=== PATIENT | female | born 1990 | race Caucasian/White ===

== ENCOUNTER 2017-03-06 06:07 | Inpatient (IN) ==
[2017-03-06 06:34] LABS: Basophils % 0.5 % (0.0-0.8); Eosinophils # 0.4 10*3/uL (0.0-0.87); Eosinophils % 5.6 % (0.00-10.9); Hematocrit 36.9 VOL% (35.7-47.0); Hemoglobin 12.7 GM/DL (12.0-16.0); Immature Granulocytes % 0.2 %; Immature Granulocytes Absolute 0.01 #; Lymphocytes # 2.7 10*3/uL (1.4-4.0); Mean Corpuscular HGB Conc 34.4 GM/DL (32-36); Mean Corpuscular Hemoglobin 32 PG (27-34); Mean Platelet Volume 10.4 FL (9.6-12.0); Monocytes # 0.3 10*3/uL (0.11-0.8); Monocytes % 5.4 % (1.7-12.7); Neutrophils # 2.8 10*3/uL (1.4-7.4); Neutrophils % 45.3 % (38.7-73.9); Platelet Count 178 T/CUMM (130-400); Red Blood Count 4.01 MC/CUMM (3.8-5.5); Red Cell Distribution Width 13.4 % (9.3-17.3); White Blood Count 6.3 T/CUMM (4-12)
[2017-03-06] MEDS ORDERED: FAMOTIDINE 20 MG TABLET PO ONE (06:48)
[2017-03-06] MEDS ORDERED: DIAZEPAM 5 MG TABLET PO ONE (06:48)
[2017-03-06] MEDS ORDERED: SCOPOLAMINE 1.5 MG PATCH TRANSDERM ONE ×2 (06:48→07:30)
[2017-03-06 06:57] LABS: Calcium 9.1 MG/DL (8.5-10.1); Osmolality,Calculated 280.3 MOS/KG (273-304); Potassium 3.9 MMOL/L (3.5-5.1)
[2017-03-06] MEDS ORDERED: LACTATED RINGERS 1,000 ML IV SCH (07:00)
--- NOTE | 2017-03-06 07:07 | History and Physical Update ---
History and Physical Update - History and Physical H&P was reviewed, the patient examined and there: are no changes in the patients condition since last H&P was completed.
[2017-03-06] MEDS ORDERED: ceFAZolin 1,000 MG VIAL ONE (07:30)
[2017-03-06] MEDS ORDERED: FAMOTIDINE 20 MG TABLET ONE (07:30)
[2017-03-06] MEDS ORDERED: DIAZEPAM 5 MG TABLET ONE (07:30)
[2017-03-06] MEDS ORDERED: SODIUM CHLORIDE 0.9% 0 ML IV ONE (07:31)
[2017-03-06] MEDS ORDERED: TISSUE ADHESIVE 1 EACH APPLICATOR TOP ONE (09:27)
[2017-03-06] MEDS ORDERED: CLINDAMYCIN INJ 900 MG in PREMIX 1 EACH IV ONE (09:54)
[2017-03-06] MEDS ORDERED: CLINDAMYCIN INJ 50 ML IV ONE (09:56)
[2017-03-06] MEDS ORDERED: HYDROmorphone 2 MG/1 ML VIAL ONE ×2 (11:50→13:40)
[2017-03-06] MEDS ORDERED: ONDANSETRON 4 MG/2 ML VIAL ONE (11:51)
--- NOTE | 2017-03-06 11:51 | Anesthesia Post-Op ---
Anesthesia Post OP - Post Ansesthetic Evaluation Patient seen in post op: Yes Resp: within normal limits CV: within normal limits Mental: within normal limits Temp: within normal limits [id number]: within normal limits Nausea and Vomiting: within normal limits Pain: within normal limits
[2017-03-06] MEDS ORDERED: PROPOFOL 200 MG/20 ML VIAL IV ONE (11:54)
[2017-03-06] MEDS: HYDROmorphone 2 MG/1 ML VIAL IV PRN ×4 (11:55→22:31)
[2017-03-06] MEDS ORDERED: SEVOFLURANE 1 UNIT/15 MINUTE INH ONE (11:55)
[2017-03-06] MEDS ORDERED: ACETAMINOPHEN 1,000 MG/100 ML VIAL IV ONE (11:55)
[2017-03-06] MEDS ORDERED: MIDAZOLAM 2 MG/2 ML VIAL ONE (11:55)
[2017-03-06] MEDS ORDERED: fentaNYL 100 MCG/2 ML VIAL ONE (11:55)
[2017-03-06] MEDS ORDERED: ONDANSETRON 4 MG/2 ML VIAL IV PRN (11:55)
--- NOTE | 2017-03-06 12:14 | Operative Note ---
Date of procedure: 03/06/17 Pre-op diagnosis: Gastroparesis, refractory to medical management Post-op diagnosis: same Procedure: Procedure performed: #1 robotically assisted laparoscopic placement of gastric stimulator leads #2 placement of gastric stimulator generator #3 EGD #4 programming of gastric stimulator Procedure in detail: After informed consent was obtained patient was taken operating suite and laid supine on the operating table. After general anesthesia was induced the abdomen was prepped and draped in usual sterile fashion including [place]. After procedural pause local anesthetic infiltrated in the skin and subcutaneous tissue just to the right of the umbilicus. Incision made and dissection carried down through skin and soft tissue. Anterior fascia divided and the rectus muscle retracted. Posterior fascia and peritoneum were opened and finger sweep revealed no adhesions. Stimulator leads were inserted along with the Dean trocar under direct visualization. Pneumoperitoneum achieved. Camera was inserted and bowel mesentery were inspected and found to be free of any violation. Next the patient was placed in reverse Trendelenburg position and 2 more 8 mm trochars were placed in the left upper quadrant along with a 5 mm h training program assistant trocar. The robotic arms were then docked and I took control to consult. There was prior cholecystectomy. There was no scar tissue or adhesions involving any portion of the stomach including near the gastroesophageal junction or hiatus that I could tell. Identified a point that was exactly 10 cm from the pylorus along the greater curvature. The skin needles were then placed approximately a half a centimeter from this point on each side. The blue Prolene suture was within the gastric wall and an EGD was performed. Esophagus appeared normal. There was some retained secretions in the stomach which were evacuated and the cyst the stomach was insufflated. Using the laparoscope camera I identified the area of the blue Prolene sutures and could not see them on EGD. There was no mucosal abnormalities. The abdomen was desufflated and the stimulator leads were then brought into the gastric wall. Impedance was checked and was okay. The discs were inserted in the skin needles placed through the disc and the Prolene sutures were clipped with the discs snug against the gastric wall. The skin needles were then removed. The trumpets were sewn in place using 2-0 Ethibond. The discs were sewn in place using 2-0 Ethibond. There was excellent hemostasis. The robotic arms were undocked and the trochars removed as the abdomen desufflated. The peritoneum and posterior fascia was closed with 0 Vicryl [id number] suture. The anterior fascia closed with running 0 Prolene suture. Subcutaneous pocket was created. There was good hemostasis. The wounds were all thoroughly irrigated and suctioned. Stimulator was placed in the subcutaneous pocket with the excess lead wrapped behind it. It was secured to the fascia using 2-0 Prolene suture. Stimulator was then interrogated and placed to the on position with nominal settings of a current of 5. Pulse width 330. Rate of 14 Hz. Cycling on 0.1 in all 5 seconds. Impedance was checked and was 505. Soft tissue over the pocket was closed with 3-0 Vicryl. Deep dermal layer was closed with interrupted 3-0 Vicryl suture. Incisions closed with 4-0 Monocryl. Sterile dressings applied. The patient was extubated and taken recovery room in stable condition. All lap and needle counts were correct at the end of the case. Anesthesia: GETA Surgeon / Physician: Corbin Recio Estimated blood loss: other (Less than 10 cc) Specimens: none sent Condition: stable Disposition: PACU Results - Labs CBC & BMP: 03/06/17 06:28 03/06/17 06:28 Discharge Plan - Discharge Medications No Action Pantoprazole Tab [Protonix Tab] 40 mg PO BID Escitalopram [Lexapro] 20 mg PO DAILY Ondansetron Tab [Zofran Tab] 8 mg PO Q8HR PRN PRN Reason: Nausea Promethazine Tab [Phenergan Tab] 25 mg PO DIRECTED PRN PRN Reason: Nausea Metoclopramide Tab [Reglan Tab] 10 mg PO TID Promethazine Inj [Phenergan Inj] 25 mg IV Q6H PRN PRN Reason: Nausea clonazePAM TAB [KlonoPIN] 1 mg PO Q12HR PRN PRN Reason: Anxiety Potassium Chloride 20 meq PO BID Ascorbic Acid Tab [Vitamin C Tab] 500 mg PO DAILY Fluticasone 50 Mcg Nasal [place] [Flonase Nasal [place]] 1 spray BOTH NARES DAILY PRN PRN Reason: Sinus Symptoms Fluticasone/Salmeterol [Advair Hfa 230-21 Mcg Inhaler] 230 mcg PO DIRECTED - Follow Up or Referral - Forms/Instructions
[2017-03-06] MEDS: fentaNYL 100 MCG/2 ML VIAL IV PRN ×2 (12:25→12:35)
[2017-03-06] MEDS ORDERED: SODIUM CHLORIDE 0.9% 1,000 ML IV SCH (12:30)
--- NOTE | 2017-03-06 13:04 | XRay Report ---
XR KUB Indication: Gastric pacemaker placement. Abdomen one view: There is a gastric stimulator device within the right lower quadrant with leads extending to the region of the mid stomach. Surgical clips in the area noted. Right upper quadrant surgical clips are present as well. Bowel gas pattern is unremarkable. Impression: Gastric stimulator as described. PROCEDURE INTERPRETED AT [facility] Final Report Signed by: Marc Gutierrez M.D.
[2017-03-06] MEDS ORDERED: FLUTICASONE 50 MCG NASAL SPRAY 16 GM BOTTLE BOTH NARES PRN (13:21)
[2017-03-06] MEDS ORDERED: ACETAMINOPHEN 325 MG TABLET PO PRN (13:21)
[2017-03-06] MEDS ORDERED: ALBUTEROL/IPRATROPIUM 3 ML NEB RESP TX PRN (13:21)
[2017-03-06] MEDS ORDERED: MORPHINE 2 MG/1 ML SYRINGE IV PRN (13:21)
[2017-03-06] MEDS ORDERED: FLUTICASONE PO SCH (13:21)
[2017-03-06] MEDS ORDERED: [UNRECOGNIZED DRUG - OTHER] PO SCH (13:21)
[2017-03-06] MEDS ORDERED: SALMETEROL PO SCH (13:21)
[2017-03-06] MEDS: DEXTROSE 5% NACL 0.45% 1,000 ML IV SCH ×2 (15:04→22:44)
[2017-03-06] MEDS: PANTOPRAZOLE 40 MG TABLET PO SCH (20:23)
[2017-03-07] MEDS: HYDROmorphone 2 MG/1 ML VIAL IV PRN ×2 (02:23→07:23)
[2017-03-07 05:54] LABS: Basophils % 0.3 % (0.0-0.8); Eosinophils # 0.2 10*3/uL (0.0-0.87); Eosinophils % 3.6 % (0.00-10.9); Hematocrit 34.9 VOL% (35.7-47.0); Hemoglobin 11.5 GM/DL (12.0-16.0); Immature Granulocytes % 0.2 %; Immature Granulocytes Absolute 0.01 #; Lymphocytes # 2.4 10*3/uL (1.4-4.0); Lymphocytes % 41.7 % (21.3-54.2); Mean Corpuscular Hemoglobin 31 PG (27-34); Mean Corpuscular Volume 94.1 FL (87-102); Mean Platelet Volume 10.4 FL (9.6-12.0); Monocytes # 0.4 10*3/uL (0.11-0.8); Neutrophils # 2.8 10*3/uL (1.4-7.4); Neutrophils % 48.2 % (38.7-73.9); Platelet Count 167 T/CUMM (130-400); Red Blood Count 3.71 MC/CUMM (3.8-5.5); Red Cell Distribution Width 13.5 % (9.3-17.3); White Blood Count 5.8 T/CUMM (4-12)
[2017-03-07 06:22] LABS: Calcium 8.4 MG/DL (8.5-10.1); Osmolality,Calculated 279.1 MOS/KG (273-304); Potassium 4.1 MMOL/L (3.5-5.1)
[2017-03-07] MEDS: DEXTROSE 5% NACL 0.45% 1,000 ML IV SCH (06:34)
[2017-03-07] MEDS: ONDANSETRON 4 MG/2 ML VIAL IV PRN ×2 (07:23→20:27)
[2017-03-07] MEDS: ESCITALOPRAM 10 MG TABLET PO SCH (09:07)
[2017-03-07] MEDS: PANTOPRAZOLE 40 MG TABLET PO SCH ×2 (09:07→20:28)
--- NOTE | 2017-03-07 10:31 | Event Note ---
Patient is postop day #1 status post robotically assisted placement of gastric stimulator. She is tolerating clears with nausea. She is complaining of uncontrolled pain. She was changed from morphine to Dilaudid overnight. She is requesting doubling her oral pain medicines this morning. She also complains of persistent right eye pain and injection for which she has been unable to seek treatment and is requesting ophthalmologic consultation. No bowel movement. She is voiding without difficulty. Patient reports mobilization. Vital signs stable General: No acute distress Heart: Regular rate and rhythm Lungs: Clear to auscultation bilaterally Abdomen: Surgical incisions are clean, dry and intact. Abdomen is soft with appropriate postoperative tenderness. Bowel sounds are hypoactive but present. Extremities: Calves are soft and nontender without pedal edema Labs reviewed this morning; unremarkable Assessment and plan patient is postop day #1 status post robotically assisted placement of gastric stimulator. She is experiencing pain as well as persistent nausea. We will continue to monitor and her pain medications have been adjusted. Continue IV fluids until she is tolerating intake better. Hopefully discharge tomorrow. Consult to ophthalmology has been placed for concern with conjunctivitis per Dr. Recio.
[2017-03-07] MEDS: KETOROLAC 15 MG/1 ML VIAL IV SCH ×2 (13:03→17:36)
[2017-03-07] MEDS: TOBRAMYCIN/DEXAMETHASONE 0.3%-0.1% OPH SUSP 2.5 ML BOTTLE RIGHT EYE SCH ×3 (14:51→20:38)
--- NOTE | 2017-03-07 15:51 | Discharge Summary ---
Hospital Course - Hospital Course Hospital Course: The patient is a 27-year-old female who underwent robotic assisted gastric pacemaker placement for idiopathic gastroparesis. Postoperatively, there was difficulty with pain management and she had difficulty tolerating clears as she experienced persistent nausea. Her pain medications were adjusted and ultimately adequate pain management was achieved. She was discharged home in good condition with appropriate analgesics, follow-up plan, and instructions for advancing her diet through full liquids to soft to regular as tolerated gradually. No complications to note. Diagnosis - Discharge Diagnosis (1) Nondiabetic gastroparesis Status: Acute Specialty Discharge - Follow Up or Referrals Follow up with: Corbin Recio MD [Physician] - 03/13/17 9:15 am Discharge Plan - Discharge Data Disposition: Disch To Home/Self Care Condition at Discharge: Stable Discharge Diet: other (Remain on clear liquids for 3 days postoperatively then advance to full liquids for 1 day per instructions below. Then advance to soft diet for 1 day with instructions below. Then he may resume regular diet as tolerated.) Activity: other (No lifting greater than 20 pounds. Avoid strenuous activity. Avoid excessive perspiration.) Hygiene: may shower Driving: not until seen by doctor Contact your physician if you experience:: fever over 101, Redness or swelling, Nausea/Vomiting, Shortness of breath, Bleeding, pain uncontrolled by pain medications Wound / Dressing Care Instructions: Keep surgical incisions clean, dry and covered. Do not soak or submerge surgical incisions. Pat incisions dry. - Discharge Medications New HYDROcodone/ACETAMIN 7.5-325 [[place] 7.5-325] 1 tablet PO Q4H PRN #50 tablet PRN Reason: Pain Moderate (4-7) Tobramycin/Dexameth Oph Susp [Tobradex Oph Susp] 1 drop RIGHT EYE QID bottle Continue Pantoprazole Tab [Protonix Tab] 40 mg PO BID Escitalopram [Lexapro] 20 mg PO DAILY Ondansetron Tab [Zofran Tab] 8 mg PO Q8HR PRN PRN Reason: Nausea Promethazine Tab [Phenergan Tab] 25 mg PO DAILY PRN PRN Reason: Nausea Metoclopramide Tab [Reglan Tab] 10 mg PO TID Promethazine Inj [Phenergan Inj] 25 mg IM Q6H PRN PRN Reason: Nausea clonazePAM TAB [KlonoPIN] 1 mg PO Q12HR PRN PRN Reason: Anxiety Potassium Chloride 20 meq PO BID Ascorbic Acid Tab [Vitamin C Tab] 500 mg PO DAILY Fluticasone 50 Mcg Nasal [place] [Flonase Nasal [place]] 1 spray BOTH NARES DAILY PRN PRN Reason: Sinus Symptoms Fluticasone/Salmeterol [Advair Hfa 230-21 Mcg Inhaler] 230 mcg PO BID PRN PRN Reason: Shortness Of Breath/Wheezing - Follow Up or Referral Follow Up: Corbin Recio MD [Physician] - 03/13/17 9:15 am - Forms/Instructions Instructions: Complete Blenderized Diet (DC), Soft Diet (DC) Exam - Constitutional Vitals: Period Temp Pulse Resp BP Sys/Nuñez Pulse Ox Last 24 Hr 97.4 F-98.8 F 52-106 16-20 95-131/58-78 95-100 Discharge Results Procedures and tests throughout hospitalization: Pending Orders 03/08/17 04:00 BMP [Basic Metabolic Panel] IN AM Labs on day of discharge: Labs from last 24 hours 03/07/17 03/07/17 05:15 05:15 WBC 5.8 RBC 3.71 L Hgb 11.5 L Hct 34.9 L MCV 94.1 MCH 31 MCHC 33.0 RDW 13.5 Plt Count 167 MPV 10.4 Neut % (Auto) 48.2 Lymph % (Auto) 41.7 [place] % (Auto) 6.0 Eos % (Auto) 3.6 Baso % (Auto) 0.3 Neut # (Auto) 2.8 Lymph # (Auto) 2.4 [place] # (Auto) 0.4 Eos # (Auto) 0.2 Baso # (Auto) 0.0 Immature Gran % 0.2 Nucleated RBC % 0.0 Immature Gran # 0.01 Nucleated RBCs # 0.00 Immature Plt Fraction 0.0 Sodium 142 Potassium 4.1 Chloride 108 H Carbon Dioxide 33 H Anion Gap 5.1 BUN 5 L Creatinine 0.70 GFR Calculation 128 BUN/Creatinine Ratio 7.00 Glucose 98 Calculated Osmolality 279.1 Calcium 8.4 L - Imaging and Cardiology Procedure: KUB x-ray: image reviewed by me, report reviewed by me (Gastric pacemaker placement confirmed) DS: Provider Date of admission: 03/07/17 12:02 Primary care physician: . No PCP Attending physician on admission: Corbin Recio MD Consults: 03/06/17 15:45 Consult to Pastoral Services [CONS] Routine Comment: Pastoral Screen: Request [employer] Visit Pastoral Screen Source of Request: Patient 03/07/17 10:25 Consult to Physician [CONS] Routine Comment: ?conjuncitivitis? Consulting Provider: Mariana Sharma Consulting Provider Notified: Yes When should Consulting Provider be notified: Now Consult to Specialist Group: Opthamology Person Notified: rodrigo larios Date Notified: 03/07/17 Time Notified: 11:05 Consult Notification Comment: [phone] Discharging clinician: Carolin Simeon PA-C
[2017-03-07] MEDS: clonazePAM 0.5 MG TABLET PO PRN (21:26)
[2017-03-08] MEDS: KETOROLAC 15 MG/1 ML VIAL IV SCH ×4 (00:48→18:30)
[2017-03-08 05:41] LABS: Calcium 8.7 MG/DL (8.5-10.1); Osmolality,Calculated 279.1 MOS/KG (273-304); Potassium 3.4 MMOL/L (3.5-5.1)
[2017-03-08] MEDS: ESCITALOPRAM 10 MG TABLET PO SCH (08:35)
[2017-03-08] MEDS: PANTOPRAZOLE 40 MG TABLET PO SCH ×2 (08:36→21:03)
[2017-03-08] MEDS: TOBRAMYCIN/DEXAMETHASONE 0.3%-0.1% OPH SUSP 2.5 ML BOTTLE RIGHT EYE SCH ×4 (08:38→21:03)
[2017-03-08] MEDS: HYDROmorphone 2 MG/1 ML VIAL IV PRN ×2 (09:08→16:10)
[2017-03-08] MEDS: ONDANSETRON 4 MG/2 ML VIAL IV PRN (10:43)
--- NOTE | 2017-03-08 18:42 | Event Note ---
General Surgery Progress Note Chief complaint This patient is a 27-year-old woman admitted following robotic assisted laparoscopic gastric stimulator placement for gastroparesis on 03/06/2017 Interval history No events overnight. Pain is well controlled with the patient is requesting elixir instead of a pain pill. Patient is having some nausea but has not vomited since her operation. She feels well overall and feels like she is ready to go home Physical exam The patient is afebrile with normal vital signs Abdominal exam reveals expected postoperative tenderness. Normal bowel sounds. Incisions are clean with no drainage or erythema. Labs Reviewed, unremarkable Imaging None new Assessment and plan Continue liquid diet Change to an elixir pain medication and possible discharge home tomorrow. The patient does live 3 hours from here so we will keep her here 1 more day to make sure she is adequately prepared for discharge as she has been getting intermittent Dilaudid still.
[2017-03-08] MEDS: POTASSIUM CHLORIDE 20 MEQ TABLET PO SCH (21:03)
[2017-03-08] MEDS: clonazePAM 0.5 MG TABLET PO PRN (21:03)
[2017-03-08] MEDS: HYDROcod/ACETAMIN 7.5-325 MG/15 ML UDCUP PO PRN (21:58)
[2017-03-09] MEDS: KETOROLAC 15 MG/1 ML VIAL IV SCH ×3 (00:24→12:30)
[2017-03-09] MEDS: HYDROcod/ACETAMIN 7.5-325 MG/15 ML UDCUP PO PRN ×3 (02:02→09:49)
[2017-03-09] MEDS: PANTOPRAZOLE 40 MG TABLET PO SCH (08:13)
[2017-03-09] MEDS: POTASSIUM CHLORIDE 20 MEQ TABLET PO SCH (08:14)
[2017-03-09] MEDS: ESCITALOPRAM 10 MG TABLET PO SCH (08:14)
[2017-03-09] MEDS: ONDANSETRON 4 MG/2 ML VIAL IV PRN (08:21)
[2017-03-09] MEDS: TOBRAMYCIN/DEXAMETHASONE 0.3%-0.1% OPH SUSP 2.5 ML BOTTLE RIGHT EYE SCH ×2 (09:49→14:14)
[2017-03-09 11:46] VITALS: BP 100/56
--- NOTE | 2017-03-09 12:30 | Discharge Summary ---
Hospital Course - Hospital Course Hospital Course: The patient is a 27-year-old female who underwent robotic assisted gastric pacemaker placement for idiopathic gastroparesis. Postoperatively, there was difficulty with pain management and she had difficulty tolerating clears as she experienced persistent nausea. Her pain medications were adjusted and ultimately adequate pain management was achieved. She was discharged home in good condition with appropriate analgesics, follow-up plan, and instructions for advancing her diet through full liquids to soft to regular as tolerated gradually. No complications to note. The patient was tolerating liquids on the day of discharge and was sent home with a prescription for Hycet Specialty Discharge - Follow Up or Referrals Follow up with: Corbin Recio MD [Physician] - 03/13/17 9:15 am Discharge Plan - Discharge Data Disposition: Disch To Home/Self Care Condition at Discharge: Stable Discharge Diet: other (Clear liquid diet) Activity: no lifting Hygiene: may shower Weight Bearing at Discharge: weight bear as tolerated Driving: other (Do not drive or operate heavy machinery for at least 24 hours and after you are off of narcotic pain medications.) Contact your physician if you experience:: fever over 101, Difficulty voiding, Redness or swelling, Nausea/Vomiting, Shortness of breath, Bleeding, pain uncontrolled by pain medications Wound / Dressing Care Instructions: It is okay to shower. Do not scrub the incision aggressively or submerge it under water. - Discharge Medications New Tobramycin/Dexameth Oph Susp [Tobradex Oph Susp] 1 drop RIGHT EYE QID bottle HYDROcod/ACETAM 7.5-325MG/15ML 15 - 30 ml PO Q4H PRN #600 ml PRN Reason: Pain Moderate (4-7) Continue Pantoprazole Tab [Protonix Tab] 40 mg PO BID Escitalopram [Lexapro] 20 mg PO DAILY Ondansetron Tab [Zofran Tab] 8 mg PO Q8HR PRN PRN Reason: Nausea Promethazine Tab [Phenergan Tab] 25 mg PO DAILY PRN PRN Reason: Nausea Metoclopramide Tab [Reglan Tab] 10 mg PO TID Promethazine Inj [Phenergan Inj] 25 mg IM Q6H PRN PRN Reason: Nausea clonazePAM TAB [KlonoPIN] 1 mg PO Q12HR PRN PRN Reason: Anxiety Potassium Chloride 20 meq PO BID Ascorbic Acid Tab [Vitamin C Tab] 500 mg PO DAILY Fluticasone 50 Mcg Nasal [place] [Flonase Nasal [place]] 1 spray BOTH NARES DAILY PRN PRN Reason: Sinus Symptoms Fluticasone/Salmeterol [Advair Hfa 230-21 Mcg Inhaler] 230 mcg PO BID PRN PRN Reason: Shortness Of Breath/Wheezing - Follow Up or Referral Follow Up: Corbin Recio MD [Physician] - 03/13/17 9:15 am - Forms/Instructions Instructions: Soft Diet (DC), Complete Blenderized Diet (DC) Exam - Constitutional Vitals: Period Temp Pulse Resp BP Sys/Nuñez Pulse Ox Last 24 Hr 97.3 F-98.2 F 57-70 16-20 94-112/55-77 95-99 General appearance: no acute distress, over weight - Head Head exam: Present: normal inspection, normocephalic - Eye Eye exam: Present: EOMI Pupils: Present: MAU - ENT ENT exam: Present: normal exam - Neck Neck exam: Present: normal inspection - Respiratory Respiratory exam: Present: clear to auscultation bilaterally. Absent: accessory muscle use, chest wall tenderness - Cardiovascular Cardiovascular exam: Present: regular rate and rhythm. Absent: systolic murmur , tachycardia - GI/Abdominal GI/Abdominal exam: Present: normal bowel sounds, tenderness (Expected postoperative tenderness), soft. Absent: rebound - Extremities Exam Extremities exam: Present: normal inspection, normal capillary refill - Back Exam Back exam: Present: normal inspection - Neurological Exam Neurological exam: Present: alert, oriented X3 - Psychiatric Psychiatric exam: Present: normal affect, normal mood - Skin Skin exam: Present: normal color, warm DS: Provider Date of admission: 03/07/17 12:02 Primary care physician: . No PCP Attending physician on admission: Corbin Recio MD Consults: 03/06/17 15:45 Consult to Pastoral Services [CONS] Routine Comment: Pastoral Screen: Request [employer] Operator Visit Pastoral Screen Source of Request: Patient 03/07/17 10:25 Consult to Physician [CONS] Routine Comment: ?conjuncitivitis? Consulting Provider: Mariana Sharma Consulting Provider Notified: Yes When should Consulting Provider be notified: Now Consult to Specialist Group: Opthamology Person Notified: rodrigo larios Date Notified: 08/25/17 Time Notified: 11:05 Consult Notification Comment: [phone] Discharging clinician: Francisco Campos MD Expected date of discharge: 03/09/17
--- NOTE | 2017-03-13 11:11 | Physician Query Form ---
CLICK EDIT DOCUMENT TO SELECT QUERY ANSWER --> OK --> SIGN Karol Chin RN, CCDS Certified Clinical [employer]ricating Supervisor W) [phone] (f) [phone] [email or web address]: Make your selection(s) from the choices in EACH section by typing an "x" and enter comments in the comment section. Please use your independent medical judgment in providing your response. This request does not imply that any particular answer is desired or expected. CLINICAL INDICATORS: (Providers should not edit this section) The medical record indicates that the patient had placement of a gastric stimulator. As the attending MD can you please further clarify the type _? Based on the above, could you clarify the appropriate diagnosis, if significant , that supports the above abnormalities and additional evaluation, monitoring, and/or treatment rendered: (x) Stimulator Generator, Multiple Array ( ) Stimulator Generator, Multiple Array Rechargeable ( ) Stimulator Generator, Single Array ( ) Stimulator Generator, Single Array Rechargeable ( ) Other, please specify: ( ) Clinically unable to determine COMMENTS: PLEASE ALSO DOCUMENT RESPONSE IN PROGRESS NOTES AND/OR DISCHARGE SUMMARY Use of terms such as suspected, likely, or probable (associated with a specific diagnosis that is being evaluated, monitored, or treated as if it exists) are acceptable and can be restated in the discharge summary if not ruled out. MTDD
== END 2017-03-09 14:35 | disposition home or self-care (01) | DRG 983 ==
LOC: N.3E 06:07 → N.OR 06:07 → N.SDSINP 06:09 → N.3E 13:19
PROVIDERS: ADMIT Surgery; ATTEND Surgery